=== PATIENT | female | born 1985 | race Hispanic/Latino ===

== ENCOUNTER 2018-05-21 15:09 | Emergency (ER) | payer BC, OTHER ==
[2018-05-21] MEDS ORDERED: KETOROLAC TROMETHAMINE 30MG/ML ONE (16:02)
== END 2018-05-21 16:09 | disposition home or self-care (01) ==
LOC: EDH 15:09
DX: S09.8XXA Other specified injuries of head, initial encounter (principal); Z79.899 Other long term (current) drug therapy; Z72.0 Tobacco use; W22.01XA Walked into wall, initial encounter; Y93.89 Activity, other specified; Y92.69 Other specified industrial and construction area as the place of occurrence of the external cause; Y99.8 Other external cause status
CPT/HCPCS: 81025; 96372; 99283; J1885

== ENCOUNTER → 2023-12-04 | Outpatient (CLI) | payer BC | END | disposition home or self-care (01) | LOC: RAH 13:37 | PROVIDERS: ATTEND Nurse Practitioner Family | DX: M54.2 Cervicalgia (principal) | CPT/HCPCS: 72141 ==